=== PATIENT | female | born 1935 | race Two or more races ===

== ENCOUNTER → 2016-10-17 | Outpatient (CLI) | payer MEDICARE, OTHER ==
[~2016-10-17] MED LIST: AMLODIPINE BESYL5 MG PO; BAYER CHEWABLE81 MG PO; CHLORTHALIDONE25 MG PO; FOSAMAX70 MG PO; GLUCOTROL10 MG PO; HYDRALAZINE HCL50 MG PO; JANUVIA100 MG PO; LANTUS SOLOSTAR3 ML SQ; LANTUS100 U/M1 SQ; LIPITOR20 MG PO; LIPITOR40 MG PO; LOPRESSOR PO; LORTAB 5/500 TA1 TA1 PO; METOPROLOL SUCC25 MG PO; NORCO1 TAB 10/3 PO; NORVASC10 MG PO; OMEPRAZOLE20 M2 PO; PANTOPRAZOLE SO40 MG PO; POLYGESIC 5/5001 CAP PO; ZESTORETIC 20/11 TA1; ZESTORETIC 20/11 TAB PO; ZESTRIL40 MG PO; ZOFRAN ODT4 MG SL; ZOVIRAX800 MG PO; [UNRECOGNIZED DRUG - OTHER] PO
[2016-10-17 10:34] LABS: BUN/CREATININE RATIO 40.9; CALCIUM SERUM 9.4 mg/dL (8.4-10.2); CREATININE SERUM 1.1 mg/dL (0.6-1.4); GLOM FILT RATE Estimated 50.9 mL/min (>60); MAGNESIUM 2.4 mg/dL (1.6-3.0); POTASSIUM 4.7 mmol/L (3.5-5.1)
== END | disposition home or self-care (01) ==
LOC: CLAB 08:48
DX: I10 Essential (primary) hypertension (principal)
CPT/HCPCS: 36415; 80048; 83735

== ENCOUNTER → 2017-04-10 | Outpatient (CLI) | payer MEDICARE, OTHER ==
[2017-04-10 08:55] LABS: BASOPHIL# 0.1 X10e3 (0-0.3); BASOPHIL% 1.2 % (0-2.5); EOSINOPHIL# 0.3 X10e3 (0-0.7); EOSINOPHIL% 6.4 % (0.0-7.0); HEMATOCRIT 32.8 % (35.0-45.0); HEMOGLOBIN 11.2 gm/dL (12.0-16.0); LYMPHOCYTE# 1.3 X10e3 (1.0-3.5); LYMPHOCYTE% 30.2 % (17.0-45.0); MEAN CELL VOLUME 90.7 FL (83-96); MEAN CORPUSCULAR HEMOGLOBIN 31.1 PG (28-34); MEAN CORPUSCULAR HGB CONC 34.3 g/dL (30-36); MEAN PLATELET VOLUME 8.3 FL (6.5-11.5); MONOCYTE# 0.5 X10e3 (0-1.0); MONOCYTE% 10.2 % (3.0-12.0); NEUTROPHIL# 2.3 X10e3 (1.5-7.1); PLATELET COUNT 116 X10e3 (140-420); RED BLOOD COUNT 3.62 X10e (3.90-5.30); RED CELL DISTRIBUTION WIDTH 13.4 % (11.0-15.5); WHITE BLOOD COUNT 4.4 X10e3 (4.0-10.5)
[2017-04-10 08:57] LABS: DIFF IND NO
[2017-04-10 09:48] LABS: ALBUMIN SERUM 3.9 g/dL (3.5-5.0); BILIRUBIN,TOTAL 0.7 mg/dL (0.2-2.0); BUN/CREATININE RATIO 33.07; CALCIUM SERUM 8.8 mg/dL (8.4-10.2); CREATININE SERUM 1.3 mg/dL (0.6-1.4); POTASSIUM 4.9 mmol/L (3.5-5.1); PROTEIN TOTAL SERUM 7.1 g/dL (6.0-8.3)
== END | disposition home or self-care (01) ==
LOC: CLAB 08:12
DX: E78.5 Hyperlipidemia, unspecified (principal)
CPT/HCPCS: 36415; 80053; 80061; 85025